=== PATIENT | female | born 1985 | race Caucasian/White ===

== ENCOUNTER 2021-03-31 19:23 | Emergency (ER) | payer MEDICARE ==
[~2021-03-31] VITALS: Ht 152.4 cm; Wt 72.0 kg
[2021-03-31 19:23] VITALS: BP 137/77
--- NOTE | 2021-03-31 19:57 | PHYS DOC ---
General Adult HPI: HPI: Patient is a 36-year-old female who presents to the emergency department for right third finger laceration. Patient reports that she was pulling on the string to turn off her feet and and her finger got caught in it and cut it. She is unsure of her last tetanus shot. She reports mild pain. She has full range of motion denies any decreased sensation to her finger. (JOSE SCOTT APRN) Review of Systems: Review of Systems: Musculoskeletal: See HPI Integument: See HPI Neurologic: See HPI (JOSE SCOTT APRN) Physical Exam: PE: Constitutional: Well developed, well nourished, no acute distress, non-toxic appearance. [] HENT: Normocephalic, atraumatic Eyes: PERRL, EOMI, conjunctiva normal, no discharge. [] Neck: Normal range of motion, no stridor Cardiovascular: Normal peripheral perfusion Lungs & Thorax: Normal work of breathing, no tachypnea Abdomen: Soft and flat Skin: Warm, dry, no erythema, no rash, 0.5 cm linear laceration with subcutaneous involvement noted to the palmar aspect of patient's right third finger proximal to her DIP joint, range of motion intact, neuro intact, no active bleeding. [] Back: Nicolasa of motion Extremities: No tenderness, no cyanosis, no clubbing, ROM intact, no edema. [] Neurologic: Alert and oriented X 3, normal motor function, normal sensory function, no focal deficits noted. [] Psychologic: Affect normal, judgement normal, mood normal. [] (JOSE SCOTT APRN) EKG: EKG: [] (JOSE SCOTT APRN) Radiology/Procedures: Radiology/Procedures: []PROCEDURE: FINGER(S) RIGHT XR FINGER(S)_RIGHT 2+VIEWS dated 03/31/2021 8:10 PM. History: Reason: laceration 3rd finger, finger caught in fan pull string / Spl. Instructions: / History: Comparison: None. Findings: There is no fracture or dislocation. The bone density is normal. No abnormal periosteal reaction is seen. Joint spaces are maintained. Impression: 1. No acute bony abnormality evident. Electronically signed by: Samantha Shrestha Jr., MD (03/31/2021 8:40 PM) [facility] DICTATED AND SIGNED BY: SAMANTHA SHRESTHA Jr, MD DATE: 03/31/212038 CC: EMERGENCY,DEPARTMENT; JOSE SCOTT APRN; JOSE SINGH ~MTH0 0 (JOSE SCOTT APRN) Heart Score: C/O Chest Pain: N/A Risk Factors: Risk Factors: DM, Current or recent (<one month) smoker, HTN, HLP, family history of CAD, obesity. Risk Scores: Score 0 - 3: 2.5% MACE over next 6 weeks - Discharge Home Score 4 - 6: 20.3% MACE over next 6 weeks - Admit for Clinical Observation Score 7 - 10: 72.7% MACE over next 6 weeks - Early Invasive Strategies (JOSE SCOTT APRN) Course & Med Decision Making: Course & Med Decision Making Pertinent Labs and Imaging studies reviewed. (See chart for details) [] Patient presents to the emergency department for right third finger laceration after getting caught in a pull string of a fan. An x-ray was performed to rule out any acute fracture and this was negative. Patient's wound was cleansed with sterile saline wound wash. Laceration was repaired with sutures. Patient tolerated procedure. Neuro intact pre and post suture placement.TEtanus updated. Non adherent dressing placed. Patient advised to take Tylenol/ibuprofen for pain. She is also advised to monitor for signs of infection. Educated on laceration care-sutures out in 7 to 10 days, monitoring for signs of infection, cleaning with mild soap and warm water, follow-up with primary care provider. I discussed with patient all findings and diagnostic testing as well as the need to follow-up with PCP for further evaluation and treatment or return to the ER if any new or worsening symptoms. Strict return precautions were also discussed at length. Patient voiced understanding and agreement with the plan. Patient is hemodynamically stable at the time of disposition. (JOSE SCOTT APRN) Dragon Disclaimer: Dragon Disclaimer: This electronic medical record was generated, in whole or in part, using a voice recognition dictation system. (JOSE SCOTT APRN) Laceration Repair Lac Repair Time:2019 Confirmed: Patient, procedure, site, and site correct Consent: Patient has given verbal consent Laceration location: Palmar aspect of patient's right third finger proximal to the DIP joint Shape: Linear Depth: Subcutaneous fat involvement Details: Clean with no foreign material Neurovascular, tendon exam: Intact Anesthesia: 1% lidocaine Preparation: Sterile field established Irrigation: Wound irrigated with saline wound wash Skin closure: Simple interrupted sutures placed Size of suture: 5-0 Ethilon Number of sutures:2 Complexity: Single layer Post procedure exam: Circulation, motor, sensory exam intact, bleeding controlled. Complications: None Patient tolerated: Well Performed by: self Total time: 20 min (JOSE SCOTT APRN) Attending Co-Sign The patient was seen and interviewed as well as examined at the bedside. The chart was reviewed. The case was discussed. Agree with the plan of care. (KIARRA MITCHELL DO) Departure Departure: Impression: Primary Impression: Laceration Disposition: HOME / SELF CARE / HOMELESS Condition: GOOD Referrals: JOSE SINGH (PCP) Patient Instructions: Laceration Care, Adult Additional Instructions: You are seen in the emergency department for a laceration to your finger. An x- ray was performed to rule out any acute fracture and this was negative. Your la ceration was cleansed in the ER and it was repaired with sutures. You can wash your laceration site with mild soap and warm water. You will need to go to your primary care provider's office or return to the emergency department in approximately 7 to 10 days to have the sutures removed. Please keep a dressing in place and change it as needed at least twice a day and if it becomes dirty. Please monitor for any signs of infection which include redness, warmth, swelling or drainage. You can take Tylenol and/or ibuprofen for your pain. If you develop worsening of your pain or swelling, any signs of infection, decreased sensation to your finger or decreased range of motion please return to the emergency department. EMERGENCY DEPARTMENT GENERAL DISCHARGE INSTRUCTIONS Thank you for coming to [facility] (ED) today and trusting us with you care. We trust that you had a positivie experience in our Emergency Department. If you wish to speak to the department management, you may call the director at [phone]. YOUR FOLLOW UP INSTRUCTIONS ARE FOLLOWS: 1. Do you have a private Doctor? If you do not have a private doctor, please ask for a resource list of physicians or clinics that may be able to assist you with follow up care. 2. The Emergency Physician has interpreted your x-rays. The X-Ray specialist will also review them. If there is a change in the findings, you will be notified in 48 hours when at all possible. 3. A lab test or culture has been done, your results will be reviewed and you will be notified if you need a change in treatment. ADDITIONAL INSTRUCTIONS AND INFORMATION: 1. Your care today has been supervised by a physician who is specially trained in emergency care. Many problems require more than one evaluation for a complete diagnosis and treatment. We recommend that you schedule your follow up appointment as recommended to ensure complete treatment of you illness or injury. If you are unable to obtain follow up care and continue to have a problem, or if your condition worsens, we recommend that you return to the ED. 2. We are not able to safely determine your condition over the phone nor are we able to give sound medical advice over the phone. For these safety reasons, if you call for medical advice we will ask you to come to the ED for further evaluation. 3. If you have any questions regarding these discharge instructions please call the ED at [phone]. SAFETY INFORMATION: In the interest of safety, wellness, and injury prevention; we encourage you to wear your sealbelt, if you smoke; quite smoking, and we encourage family to use a protective helmet for bicycling and other sporting events that present an increased risk for head injury. IF YOUR SYMPTOMS WORSEN OR NEW SYMPTOMS DEVELOP, OR YOU HAVE CONCERNS ABOUT YOUR CONDITION; OR IF YOUR CONDITION WORSENS WHILE YOU ARE WAITING FOR YOUR FOLLOW UP APPOINTMENT; EITHER CONTACT YOUR PRIMARY CARE DOCTOR, THE PHYSICIAN WHOSE NAME AND NUMBER YOU WERE GIVEN, OR RETURN TO THE ED IMMEDIATELY. JOSE SCOTT APRN Mar 31, 2021 19:57 KIARRA MITCHELL DO Apr 01, 2021 19:41
[2021-03-31] MEDS ORDERED: LIDOCAINE 1% Multi-Dose 20 ML VIAL. IJ ONE (20:00)
--- NOTE | 2021-03-31 20:42 | RAD ---
XR FINGER(S)_RIGHT 2+VIEWS dated 03/31/2021 8:10 PM. History: Reason: laceration 3rd finger, finger caught in fan pull string / Spl. Instructions: / Hist ory: Comparison: None. Findings: There is no fracture or dislocation. The bone density is normal. No abnormal periosteal reaction is s een. Joint spaces are maintained. Impression: 1. No acute bony abnormality evident. Electronically signed by: Danny Shrestha Jr., MD (03/31/2021 8:40 PM) [facility]
[2021-03-31] MEDS ORDERED: DIPH,PERTUSS(ACELL),TET VAC/PF 0.5 ML SYRINGE. VAX IM ONE (20:45)
== END 2021-03-31 21:15 | disposition home or self-care (01) ==
LOC: ER 19:23
DX: S61.212A Laceration without foreign body of right middle finger without damage to nail, initial encounter (principal); W26.8XXA Contact with other sharp object(s), not elsewhere classified, initial encounter; Y93.89 Activity, other specified; Y92.89 Other specified places as the place of occurrence of the external cause; Y99.8 Other external cause status
CPT/HCPCS: 12001; 73140; 90471; 90715; 99283-25

== ENCOUNTER 2021-04-09 09:44 | Emergency (ER) | payer MEDICARE ==
[~2021-04-09] VITALS: Ht 152.4 cm; Wt 70.8 kg
[2021-04-09 09:58] VITALS: BP 126/81
--- NOTE | 2021-04-09 10:03 | PHYS DOC ---
Past History Past Surgical History: No Surgical History (JOSE SCOTT APRN) Alcohol Use: None (JOSE SCOTT APRN) General Adult EDM: Chief Complaint: SUTURE/STAPLE REMOVAL HPI: HPI: Patient is a 36-year-old female who presents to the emergency department for suture removal from her left third finger. Patient had [address] Patient had sutures placed 9 days ago. Patient has no complaints at this time. She denies any signs of infection, pain, decreased range of motion or decreased sensation. (JOSE SCOTT APRN) Review of Systems: Review of Systems: 14 body systems of the review of systems have been reviewed. See HPI for pertinent positive and negative responses, otherwise all other systems are negative, nonpertinent or noncontributory (JOSE SCOTT APRN) Allergies: Allergies: Allergies Coded Allergies Type Severity Reaction Last Updated Verified No Known Drug Allergies 03/31/21 No (JOSE SCOTT APRN) Physical Exam: PE: Constitutional: Well developed, well nourished, no acute distress, non-toxic appearance. [] HENT: Normocephalic, atraumatic Eyes: PERRL, EOMI, conjunctiva normal, no discharge. [] Neck: Normal range of motion, no stridor Cardiovascular: Normal peripheral perfusion Lungs & Thorax: No tachypnea, nonlabored Abdomen: Soft and flat Skin: Warm, dry, no erythema, no rash, 1 suture noted to left third finger proximal to DIP joint wound is well approximated without any signs of infection, neuro intact, range of motion intact Back: Normal range of motion Extremities: No tenderness, no cyanosis, no clubbing, ROM intact, no edema. [] Neurologic: Alert and oriented X 3, normal motor function, normal sensory function, no focal deficits noted. [] Psychologic: Affect normal, judgement normal, mood normal. [] (JOSE SCOTT APRN) EKG: EKG: [] (JOSE SCOTT APRN) Radiology/Procedures: Radiology/Procedures: [] (JOSE SCOTT APRN) Heart Score: C/O Chest Pain: N/A Risk Factors: Risk Factors: DM, Current or recent (<one month) smoker, HTN, HLP, family history of CAD, obesity. Risk Scores: Score 0 - 3: 2.5% MACE over next 6 weeks - Discharge Home Score 4 - 6: 20.3% MACE over next 6 weeks - Admit for Clinical Observation Score 7 - 10: 72.7% MACE over next 6 weeks - Early Invasive Strategies (JOSE SCOTT APRN) Course & Med Decision Making: Course & Med Decision Making Pertinent Labs and Imaging studies reviewed. (See chart for details) [] Patient presents for suture removal. Patient has 1 single stitch in her left third finger proximal to her DIP joint. Suture was removed. Patient tolerated procedure. Patient is neurovascularly intact. Range of motion intact. No signs of infection. Wound is well approximated. I discussed with patient all findings as well as the need to follow-up with PCP for further evaluation and treatment or return to the ER if any new or worsening symptoms. Strict return precautions were also discussed at length. Patient voiced understanding and agreement with the plan. Patient is hemodynamically stable at the time of disposition. (JOSE SCOTT APRN) Dragon Disclaimer: Dragon Disclaimer: This electronic medical record was generated, in whole or in part, using a voice recognition dictation system. (JOSE SCOTT APRN) Departure Departure: Impression: Primary Impression: Encounter for removal of sutures Disposition: 01 HOME / SELF CARE / HOMELESS Condition: GOOD Referrals: JOSE SINGH (PCP) Patient Instructions: Suture Removal Additional Instructions: You are seen in the emergency department for suture removal. Please keep your finger clean and dry. Follow-up with your primary care provider as needed. Please return to the ER for any new or worsening concerns. EMERGENCY DEPARTMENT GENERAL DISCHARGE INSTRUCTIONS Thank you for coming to [facility] (ED) today and trusting us with you care. We trust that you had a positivie experience in our Emergency Department. If you wish to speak to the department management, you may call the director at [phone]. YOUR FOLLOW UP INSTRUCTIONS ARE FOLLOWS: 1. Do you have a private Doctor? If you do not have a private doctor, please ask for a resource list of physicians or clinics that may be able to assist you with follow up care. 2. The Emergency Physician has interpreted your x-rays. The X-Ray specialist will also review them. If there is a change in the findings, you will be notified in 48 hours when at all possible. 3. A lab test or culture has been done, your results will be reviewed and you will be notified if you need a change in treatment. ADDITIONAL INSTRUCTIONS AND INFORMATION: 1. Your care today has been supervised by a physician who is specially trained in emergency care. Many problems require more than one evaluation for a complete diagnosis and treatment. We recommend that you schedule your follow up appointment as recommended to ensure complete treatment of you illness or injury. If you are unable to obtain follow up care and continue to have a problem, or if your condition worsens, we recommend that you return to the ED. 2. We are not able to safely determine your condition over the phone nor are we able to give sound medical advice over the phone. For these safety reasons, if you call for medical advice we will ask you to come to the ED for further evaluation. 3. If you have any questions regarding these discharge instructions please call the ED at [phone]. SAFETY INFORMATION: In the interest of safety, wellness, and injury prevention; we encourage you to wear your sealbelt, if you smoke; quite smoking, and we encourage family to use a protective helmet for bicycling and other sporting events that present an increased risk for head injury. IF YOUR SYMPTOMS WORSEN OR NEW SYMPTOMS DEVELOP, OR YOU HAVE CONCERNS ABOUT YOUR CONDITION; OR IF YOUR CONDITION WORSENS WHILE YOU ARE WAITING FOR YOUR FOLLOW UP APPOINTMENT; EITHER CONTACT YOUR PRIMARY CARE DOCTOR, THE PHYSICIAN WHOSE NAME AND NUMBER YOU WERE GIVEN, OR RETURN TO THE ED IMMEDIATELY. Attending Signature Attending Signature I have reviewed the PA/OUTPATIENT RECEPTIONIST's note and plan of care. I was available for consultation as needed during the patient's visit in the emergency department. I agree with the clinical impression, plan, and disposition. (KRISTINE JAMES DO) JOSE SCOTT APRN Apr 09, 2021 10:03 KRISTINE JAMES DO Apr 09, 2021 13:26
== END 2021-04-09 10:06 | disposition home or self-care (01) ==
LOC: ER 09:44
DX: S61.213D Laceration without foreign body of left middle finger without damage to nail, subsequent encounter (principal); X58.XXXD Exposure to other specified factors, subsequent encounter
CPT/HCPCS: 99281